=== PATIENT | male | born 1980 | race American Indian/Alaskan Native ===

== ENCOUNTER 2016-10-21 17:49 | Emergency (ER) | payer OTHER ==
[2016-10-21 18:45] LABS: CHLORIDE,CL 107 mmol/L (101-111); SODIUM,NA 138 mmol/L (135-145)
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
[2016-10-21] MEDS ORDERED: Cyclobenzaprine 10 MG Tab PO ONE (19:26)
[2016-10-21] MEDS ORDERED: Ibuprofen 800 MG Tab PO ONE (19:26)
== END 2016-10-21 19:38 | disposition home or self-care (01) ==
LOC: DL.ED 17:49
DX: S16.1XXA Strain of muscle, fascia and tendon at neck level, initial encounter (principal); S29.019A Strain of muscle and tendon of unspecified wall of thorax, initial encounter; S83.91XA Sprain of unspecified site of right knee, initial encounter; I10 Essential (primary) hypertension; F17.210 Nicotine dependence, cigarettes, uncomplicated; Z88.0 Allergy status to penicillin; V49.49XA Driver injured in collision with other motor vehicles in traffic accident, initial encounter
CPT/HCPCS: 36415; 71020; 72125; 80053; 80305; 81001; 85025; 99284; A9270; G0480

== ENCOUNTER 2018-11-08 21:37 | Emergency (ER) | payer MEDICAID, OTHER ==
[2018-11-08] MEDS ORDERED: Codeine/guaiFENesin 100-10 MG/5 ML Syrup 5 ML Cup PO ONE (21:38)
[2018-11-08 22:27] VITALS: BP 141/81
--- NOTE | 2018-11-08 23:10 | EDM.PDOC ---
ED HPI GENERAL MEDICAL PROBLEM - General Chief Complaint: General Stated Complaint: COLD SINCE THURSDAY Time Seen by Provider: 11/08/18 23:40 Source of Information: Reports: Patient, RN, RN Notes Reviewed History Limitations: Reports: No Limitations - History of Present Illness INITIAL COMMENTS - FREE TEXT/NARRATIVE: Pt to ER with c/o cough. He states the cough is productive, white/green. Admits to fever that began on Thursday, on and off, finally breaking on Thursday. Daughter tested positive for Influenza A today. Onset: Gradual Duration: Constant, Getting Worse Location: Reports: Chest Treatments [employer]: Reports: Other Medication(s) Generalized Pain Score (Numeric/FACES): 7 - Related Data Allergies Allergy/AdvReac Type Severity Reaction Status Date / Time Penicillins Allergy Hives Verified 11/08/18 22:35 Home Meds: Home Meds Lisinopril 10 mg PO DAILY 07/31/18 [History] Past Medical History - Past Health History Medical/Surgical History: Denies Medical/Surgical History Cardiovascular History: Reports: Hypertension - Past Surgical History Musculoskeletal Surgical History: Reports: Arthroscopic Knee Social & Family History - Family History Family Medical History: Noncontributory - Tobacco Use Smoking Status *Q: Never Smoker - Caffeine Use Caffeine Use: Reports: Coffee, Soda - Recreational Drug Use Recreational Drug Use: No ED ROS GENERAL - Review of Systems Review Of Systems: ROS reveals no pertinent complaints other than HPI. ED EXAM, GENERAL - Physical Exam Exam: See Below Exam Limited By: No Limitations General Appearance: Alert, WD/WN, Mild Distress Eye Exam: Bilateral Eye: EOMI, Normal Inspection Ears: Normal External Exam, Hearing Grossly Normal Nose: Normal Inspection Throat/Mouth: Normal Inspection, Normal Lips, Normal Teeth, Normal Gums, Normal Oropharynx, Normal Voice, No Airway Compromise Head: Atraumatic, Normocephalic Neck: Normal Inspection, Supple, Non-Tender, Full Range of Motion Respiratory/Chest: No Respiratory Distress, No Accessory Muscle Use, Rhonchi, Wheezing (expiratory) Cardiovascular: Normal Peripheral Pulses, Regular Rate, Rhythm, No Edema, No Gallop, No JVD, No Murmur, No Rub Peripheral Pulses: 2+: Radial (L), Radial (R) GI/Abdominal: Normal Bowel Sounds, Soft, Non-Tender (Male) Exam: Deferred Rectal (Males) Exam: Deferred Back Exam: Normal Inspection, Full Range of Motion, NT Extremities: Normal Inspection, Normal Range of Motion, Non-Tender, Normal Capillary Refill, No Pedal Edema Neurological: Alert, Oriented, CN II-XII Intact, Normal Cognition, Normal Gait, Normal Reflexes, No Motor/Sensory Deficits Psychiatric: Normal Affect, Normal Mood Skin Exam: Warm, Dry, Intact, Normal Color, No Rash Lymphatic: No Adenopathy Course - Vital Signs Last Recorded V/S: Last Vital Signs Temp 96.8 F 11/08/18 22:20 Pulse 65 11/08/18 22:20 Resp 16 11/08/18 22:20 BP 141/81 H 11/08/18 22:20 Pulse Ox 98 11/08/18 22:20 - Orders/Labs/Meds Labs: Influenza A & B: Negative Meds: Medications Discontinued Medications Generic Name Dose Route Start Last Admin Trade Name Freq PRN Reason Stop Dose Admin Guaifenesin/Codeine Phosphate Confirm 11/09/18 01:17 Robitussin Ac Administered 11/09/18 01:18 Dose 5 ml .ROUTE .[facility] - Radiology Interpretation Free Text/Narrative:: Chest xray: FINDINGS: Lungs: Clear lungs. Pleural space: No pneumothorax. No sizable pleural effusion. Heart/Mediastinum: No cardiomegaly. Stable prominence of the left pulmonary artery. Bones/joints: Unremarkable. IMPRESSION: Clear lungs. Thank you for allowing us to participate in the care of your patient. Dictated and Authenticated by: Bunny Bertrand MD 11/09/2018 1:21 AM Central Time ([place] & [place]) See rad report Departure - Departure Time of Disposition: 01:23 Disposition: Home, Self-Care 01 Condition: Fair Clinical Impression: Bronchitis - Discharge Information *PRESCRIPTION DRUG MONITORING PROGRAM REVIEWED*: No *COPY OF PRESCRIPTION DRUG MONITORING REPORT IN PATIENT [place]: No Instructions: Acute Bronchitis, Adult, [id number], Upper Respiratory Infection, Adult, [id number] Referrals: PCP,None [Primary Care Provider] - Forms: ED Department Discharge Additional Instructions: RX: Cheratussin, Tamiflu Follow up with your primary care facility Stop smoking May use Tylenol and/or Ibuprofen as directed for pain/fever
[2018-11-09] MEDS ORDERED: Codeine/guaiFENesin 100-10 MG/5 ML Syrup 5 ML Cup ONE (01:17)
== END 2018-11-09 01:35 | disposition home or self-care (01) ==
LOC: DL.ED 21:37
DX: J40 Bronchitis, not specified as acute or chronic (principal); I10 Essential (primary) hypertension; Z88.0 Allergy status to penicillin; Z79.899 Other long term (current) drug therapy
CPT/HCPCS: 71046; 87804; 99283; A9270

== ENCOUNTER 2019-07-22 23:19 | Emergency (ER) | payer BC, OTHER ==
[2019-07-22 23:51] VITALS: BP 133/96; PULSE 77
[2019-07-23] MEDS ORDERED: Azithromycin 250 MG Tab PO ONE (00:22)
--- NOTE | 2019-07-23 00:26 | EDM.PDOC ---
ED HPI GENERAL MEDICAL PROBLEM - General Chief Complaint: General Stated Complaint: COLD Time Seen by Provider: 07/22/19 23:25 Source of Information: Reports: Patient History Limitations: Reports: No Limitations - History of Present Illness INITIAL COMMENTS - FREE TEXT/NARRATIVE: ED with c/o fever cough sore throat, ear pain congestion x 2-3 days. No vomiting or diarrhea. Upper Chest Pain Score (Numeric/FACES): 5 Bilateral Ear Pain Score (Numeric/FACES): 5 - Related Data Allergies Allergy/AdvReac Type Severity Reaction Status Date / Time Penicillins Allergy Hives Verified 07/22/19 23:51 Home Meds: Home Meds . [No Known Home Meds] 07/22/19 [History] Past Medical History - Past Health History Medical/Surgical History: Denies Medical/Surgical History Cardiovascular History: Reports: Hypertension - Infectious Disease History Infectious Disease History: Reports: None - Past Surgical History Musculoskeletal Surgical History: Reports: Arthroscopic Knee Social & Family History - Family History Family Medical History: Noncontributory - Tobacco Use Smoking Status *Q: Unknown Ever Smoked Second Hand Smoke Exposure: No - Caffeine Use Caffeine Use: Reports: Coffee - Recreational Drug Use Recreational Drug Use: No ED ROS GENERAL - Review of Systems Review Of Systems: Comprehensive ROS is negative, except as noted in HPI. ED EXAM, GENERAL - Physical Exam Exam: See Below Exam Limited By: No Limitations General Appearance: Alert, Mild Distress Eye Exam: Bilateral Eye: EOMI Ears: Normal External Exam. No: Normal TMs Ear Exam: Bilateral Ear: TM Red Nose: Normal Inspection Throat/Mouth: Inflammation Head: Atraumatic, Normocephalic Neck: Normal Inspection Respiratory/Chest: No Respiratory Distress, Lungs Clear, Normal Breath Sounds Cardiovascular: Normal Peripheral Pulses, Regular Rate, Rhythm Back Exam: Normal Inspection Extremities: Normal Inspection Neurological: Alert, Oriented, Normal Cognition Psychiatric: Normal Affect, Normal Mood Skin Exam: Warm, Dry, Intact, Normal Color Course - Vital Signs Last Recorded V/S: Last Vital Signs Temp 97.5 F 07/22/19 23:22 Pulse 77 07/22/19 23:22 Resp 17 07/22/19 23:22 BP 133/96 H 07/22/19 23:22 Pulse Ox 98 07/22/19 23:22 - Orders/Labs/Meds Orders: Active Orders 24 hr Category Date Time Status CULTURE STREP A CONFIRMATION [RM] Stat Lab 12/06/19 23:33 Results STREP SCRN A RAPID W CULT CONF [RM] Stat Lab 07/22/19 23:33 Results Meds: Medications Discontinued Medications Generic Name Dose Route Start Last Admin Trade Name Amrik PRN Reason Stop Dose Admin Azithromycin 500 mg 07/23/19 00:22 07/23/19 00:27 Zithromax PO 07/23/19 00:23 500 mg ONETIME ONE Administration Departure - Departure Time of Disposition: 00:23 Disposition: Home, Self-Care 01 Condition: Good Clinical Impression: URI (upper respiratory infection) Qualifiers: URI type: unspecified URI Qualified Code(s): J06.9 - Acute upper respiratory infection, unspecified Bilateral otitis media Qualifiers: Otitis media type: suppurative Chronicity: acute Recurrence: non-recurrent Spontaneous tympanic membrane rupture: without spontaneous rupture Qualified Code(s): H66.003 - Acute suppurative otitis media without spontaneous rupture of ear drum, bilateral - Discharge Information *PRESCRIPTION DRUG MONITORING PROGRAM REVIEWED*: No *COPY OF PRESCRIPTION DRUG MONITORING REPORT IN PATIENT [place]: No Instructions: Cool Mist Vaporizer, Upper Respiratory Infection, Adult, Easy-to- Read, Otitis Media, Adult Forms: ED Department Discharge Additional Instructions: robitussin per label for cough alternate tylenol and ibuprofen every 4 hours as needed for fever/ discomfort cool mist vaporizer azithromycin 250mg one daily for 4 days. increase fluid intake good handwashing - My Orders Last 24 Hours: My Active Orders 07/22/19 23:33 CULTURE STREP A CONFIRMATION [RM] Stat STREP SCRN A RAPID W CULT CONF [RM] Stat - Assessment/Plan Last 24 Hours: My Active Orders 07/22/19 23:33 CULTURE STREP A CONFIRMATION [RM] Stat STREP SCRN A RAPID W CULT CONF [RM] Stat
== END 2019-07-23 00:35 | disposition home or self-care (01) ==
LOC: DL.ED 23:19
DX: J06.9 Acute upper respiratory infection, unspecified (principal); H66.003 Acute suppurative otitis media without spontaneous rupture of ear drum, bilateral; I10 Essential (primary) hypertension; Z88.0 Allergy status to penicillin
CPT/HCPCS: 87081; 87430; 87804; 99283; A9270

== ENCOUNTER 2021-09-01 00:41 | Emergency (ER) | payer BC, MEDICAID ==
[2021-09-01 01:50] LABS: CORONAVIRUS COVID-19 NAA POSITIVE (NEGATIVE)
[2021-09-01 02:04] VITALS: BP 153/102; PULSE 103
[2021-09-01] MEDS ORDERED: Benzonatate 100 MG Cap PO ONE (02:14)
== END 2021-09-01 02:27 | disposition home or self-care (01) ==
LOC: DL.ED 00:41
DX: U07.1 COVID-19 (principal); Z88.0 Allergy status to penicillin; Z72.0 Tobacco use
CPT/HCPCS: 0240U; 99283; A9270

== ENCOUNTER 2021-09-17 16:11 | Emergency (ER) | payer BC, MEDICAID ==
[2021-09-17] MEDS ORDERED: Ketorolac 30 MG/ML SDV IM ONE (16:15)
[2021-09-17 16:19] VITALS: BP 131/90; PULSE 60
[2021-09-17] MEDS ORDERED: Ibuprofen 800 MG Tab PO ONE (17:38)
== END 2021-09-17 17:53 | disposition home or self-care (01) ==
LOC: DL.ED 16:11
DX: S83.421A Sprain of lateral collateral ligament of right knee, initial encounter (principal); S70.01XA Contusion of right hip, initial encounter; M25.461 Effusion, right knee; M17.11 Unilateral primary osteoarthritis, right knee; I10 Essential (primary) hypertension; Z88.0 Allergy status to penicillin; Z79.899 Other long term (current) drug therapy; W00.0XXA Fall on same level due to ice and snow, initial encounter
CPT/HCPCS: 73502; 73562; 99283; A9270